=== PATIENT | female | born 1980 | race Hispanic/Latino ===

== ENCOUNTER 2017-05-13 16:02 | Emergency (ER) | payer SELFPAY ==
[~2017-05-13] VITALS: Ht 152.4 cm; Wt 65.8 kg
[~2017-05-13 16:02] MED LIST: IBUPROFEN800 M1 PO; PERCOCET 5-3251 EACH PO; ZOFRAN ODT4 M1 SL
--- NOTE | 2017-05-13 19:12 | ED DYSPNEA/ASTHMA COMPLAINT ---
History of Present Illness General Chief Complaint: General Adult Stated Complaint: RIB PAIN WITH COUGHING Source: patient Exam Limitations: no limitations Vital Signs & Intake/Output Vital Signs & Intake/Output Vital Signs Date Time Temp Pulse Resp B/P B/P Pulse O2 O2 Flow FiO2 Mean Ox Delivery Rate 05/13 2123 98.9 99 18 139/84 97 Room Air 05/13 2121 96 Room Air 05/13 1616 99.7 101 26 149/95 98 Room Air ED Intake and Output 05/14 0000 05/13 1200 Intake Total Output Total Balance Patient 145 lb Weight Allergies Coded Allergies: No Known Allergies (04/18/17) Reconcile Medications Amoxicillin 500 MG CAPSULE 1 CAP PO BID ANTIBIOTIC (Reported) Calcium (Elemental-Fr Calcarb) (Calcium) (Unknown Strength) TABLET (Unknown Dose) PO DAILY SUPPLEMENT (Reported) Codeine Phosphate/Guaifenesi (Cheratussin AC Syrup) 10 MG-100 MG/5 ML LIQUID 5 ML PO BID PRN cough Hydroxychlorquine (Plaquenil) 200 MG TABLET 1 TAB PO BID LUPUS (Reported) Ibuprofen 400 MG TABLET 1 TAB PO TID PRN PAIN/INFLAMMATION (Reported) Levonorgestrel (Mirena) 20 MCG/24 HOUR (5 YEARS) IUD CONTROL (Reported) Prednisone 5 MG TABLET 1 TAB PO DAILY LUPUS (Reported) Prednisone 10 MG TABLET 1 DOSE PO DAILY bronchitis 4 tabs day 1 4 tabs day 2 3 tabs day 3 2 tabs day 4 1 tab day 5 Triage Note: PT TO ER C/C LEFT SIDED RIB PAIN S/P COUGHING 1 HR AGO. WAS SEEN AT [facility] YESTERDAY DIAGNOSED WITH ?INFECTION. STARTED ON AMOXICILLIN AND IBUPROFEN. TEMP 99.7 IN TRIAGE. RA SAT 98% Triage Nurses Notes Reviewed? yes Onset: Gradual Duration: week(s): Timing: recent history Severity: moderate : No Patient currently breastfeeds: No HPI: 37yo female with hx of lupus presents to ED complaining of dry cough x 2 weeks. Patient was seen and evaluated in urgent care yesterday for cough and was started on amoxicillin and ibuprofen 800mg without relief. Patient now complaining of left anterior rib cage pain beginning today following coughing. Pain is worse with inspiration and coughing. She also had 1 episode of vomiting following coughing fit today. Patient has had fevers for the past 2 days however not recently after taking ibuprofen. Patient denies diarrhea, hemoptysis, unilateral leg swelling. (Betty Unger) Past History Travel History Traveled to [place] past 21 day No Medical History Any Pertinent Medical History? see below for history Blood Disorders: LUPUS Surgical History Surgical History: none Psychosocial History What is your primary language Bulgarian Tobacco Use: Never used Family History Hx Contributory? No (Betty Unger) Review of Systems Review of Systems Constitutional: Reports: see HPI. EENTM: Reports: no symptoms. Respiratory: Reports: see HPI. Cardiovascular: Reports: no symptoms. GI: Reports: see HPI. Genitourinary: Reports: no symptoms. Musculoskeletal: Reports: no symptoms. Skin: Reports: no symptoms. Neurological/Psychological: Reports: no symptoms. Hematologic/Endocrine: Reports: no symptoms. Immunologic/Allergic: Reports: no symptoms. All Other Systems: Reviewed and Negative (Betty Unger) Physical Exam Physical Exam General Appearance: well developed/nourished, no apparent distress, alert, awake Head: atraumatic, normal appearance Eyes: Bilateral: normal appearance. Ears, Nose, Throat: normal pharynx, hearing grossly normal Neck: normal inspection, supple, full range of motion Respiratory: normal breath sounds, no respiratory distress, lungs clear, left anterior rib cage tenderness, no ecchymosis Cardiovascular: regular rate/rhythm Peripheral Pulses: 2+ radial (R), 2+ radial (L) Gastrointestinal: normal bowel sounds, soft, non-tender, no organomegaly Extremities: normal inspection, normal range of motion Neurologic/Psych: awake, alert, oriented x 3 Skin: intact, normal color, warm/dry Core Measures ACS in differential dx? No CVA/TIA Diagnosis No Sepsis Present: No Sepsis Focused Exam Completed? No (Betty Unger) Progress Differential Diagnosis: asthma, bronchitis, costochondritis, COPD, musculoskeletal pain, pulmonary embolism, pneumonia, pneumothorax, rib fracture, muscle strain Plan of Care: Orders Procedure Date/time Status URINE 05/13 1618 Complete Laboratory Tests 05/13/17 1940: Urine Test NEGATIVE Patient's chest x-ray is within normal limits. She has breath sounds clear and equal bilaterally. She is in no respiratory distress, not hypoxic, vital signs are stable. Patient likely has pulled muscle versus costochondritis related to bronchitis and cough. Patient's abdominal exam is without tenderness. Patient was prescribed steroid pack and cough suppressant to begin tonight. Patient has no chest pain. The patient agrees with the plan of care. She will return with any worsening symptoms or concerns. Diagnostic Imaging: Viewed by Me: Radiology Read. Discussed w/RAD: Radiology Read. CXR Impression: PATIENT: ROSALVA ESQUIVEL PRESENT AGE: 37 PATIENT ACCOUNT NO: [id number] : 81 LOCATION: ER ORDERING PHYSICIAN: Betty RICHARDSON SERVICE DATE: 05/13/17 EXAM TYPE: RAD - XRY-CHEST XRAY, TWO VIEWS EXAMINATION: CHEST 2 VIEWS CLINICAL INFORMATION: Left-sided pain. COMPARISON: None. TECHNIQUE: PA and lateral views of the chest were obtained. FINDINGS: The cardiac silhouette is not enlarged. The mediastinal and hilar contours are unremarkable. There are neither pleural effusions nor pneumothoraces. There are no consolidations. The osseous structures are unremarkable. IMPRESSION: No evidence for acute disease. DICTATED BY: Geraldo Burgess MD DATE/TIME DICTATED:05/13/172048 ORGAN PIPE VOICER:DIANE DATE/TIME TRANSCRIBED:05/13/172048 CONFIDENTIAL, DO NOT COPY WITHOUT APPROPRIATE AUTHORIZATION. <Electronically signed in Other Vendor System> SIGNED BY: Geraldo Burgess MD 05/13/172052 Initial ED EKG: none (Yara RICHARDSON,Betty Ortiz) Departure Departure Disposition: HOME OR SELF CARE Condition: Stable Clinical Impression Primary Impression: Cough Secondary Impressions: Bronchitis Referrals: Marisol SPRAY II PAINTER,Zoran (PCP/Family) Additional Instructions: Take cough syrup as prescribed as needed for cough. Stopped taking your daily steroid and begin higher dose steroid for the next 5 days. When she finished this steroid taper you may resume your daily steroids. Follow-up with your primary care doctor. Return to the emergency department with worsening symptoms or other concerns. Please note that there might be incidental findings in your evaluation that are unrelated to the current emergency department visit. Please notify your primary care doctor about this emergency department visit in order to obtain and review all of the testing performed so that these incidental findings can be monitored as needed. If you had an x-ray performed, please understand that some fractures may not be seen on the initial set of x-rays. If your symptoms persist you might need a repeat set of x-rays to check for such a fracture. If you had a laceration evaluated, please understand that foreign bodies such as glass or wood may not be visible to the naked eye or on plain x-rays. If the wound becomes red, swollen, increasingly more painful or if there is any drainage from the wound, please have it reevaluated by a physician for the possibility of a retained foreign body. If you're unable to follow up as outlined in the discharge instructions please return to the emergency department. Thank you for choosing the Emergency Department for your care. It was a pleasure to serve you today. Departure Forms: Customer Survey General Discharge Information Prescriptions: Current Visit Scripts Prednisone 1 DOSE PO DAILY #14 TAB 4 tabs day 1 4 tabs day 2 3 tabs day 3 2 tabs day 4 1 tab day 5 Codeine Phosphate/Guaifenesi (Cheratussin AC Syrup) 5 ML PO BID PRN cough #100 ML (Betty Unger) PA/SPRAY II PAINTER Co-Sign Statement Statement: ED Attending supervision documentation- I saw and evaluated the patient. I have also reviewed all the pertinent lab results and diagnostic results. I agree with the findings and the plan of care as documented in the PA's/SPRAY II PAINTER's documentation. x I have reviewed the ED Record and agree with the PA's/SPRAY II PAINTER's documentation. [] Additions or exceptions (if any) to the PAs/SPRAY II PAINTER's note and plan are summarized below: [] (Ludin SEPULVEDA,Faizan) Critical Care Note Critical Care Note Critical Care Time: non-applicable (Betty Unger)
[2017-05-13] MEDS ORDERED: IBUPROFEN400 M1 PO (19:21)
[2017-05-13] MEDS ORDERED: PLAQUENIL200 M1 PO (19:22)
[2017-05-13] MEDS ORDERED: AMOXICILLIN500 M2 PO (19:22)
[2017-05-13] MEDS ORDERED: PREDNISONE5 M1 PO (19:23)
[2017-05-13] MEDS ORDERED: MIRENA1 EACH (19:23)
[2017-05-13] MEDS ORDERED: CALCIUM600 M3 PO (19:32)
--- NOTE | 2017-05-13 20:53 | RADIOLOGY REPORT ---
EXAMINATION: CHEST 2 VIEWS CLINICAL INFORMATION: Left-sided pain. COMPARISON: None. TECHNIQUE: PA and lateral views of the chest were obtained. FINDINGS: The cardiac silhouette is not enlarged. The mediastinal and hilar contours are unremarkable. There are neither pleural effusions nor pneumothoraces. There are no consolidations. The osseous structures are unremarkable. IMPRESSION: No evidence for acute disease.
[2017-05-13] MEDS ORDERED: CHERATUSSIN AC118 M1 PO (21:15)
[2017-05-13] MEDS ORDERED: PREDNISONE10 M2 PO (21:15)
[2017-05-13 21:24] VITALS: BP 139/84
== END 2017-05-13 21:45 ==
LOC: ERH 16:02
DX: J40 Bronchitis, not specified as acute or chronic (principal)
CPT/HCPCS: 71046; 81025